=== PATIENT | male | born 1930 | race African-American/Black ===

== ENCOUNTER 2017-03-08 11:47 | Inpatient (IN) | payer OTHER ==
[~2017-03-08] VITALS: Ht 180.3 cm; Wt 57.7 kg
[~2017-03-08 11:47] MED LIST: ALBUD HHN; ALPHAGAN P5 M1 OU; AMLODIPINE BES2.5 M1; AMLODIPINE BESY10 M1 PO; BUPROPION HCL100 M1 PO; CLINDAMYCIN300 M1 PO; CLONIDINE HCL0.2 MG PO; DOK250 MG PO; DUONEB3 ML NEB; FERROUS SULFAT325 M2 PO; GOOD SENSE ASPI81 M3 PO; GUAIFEN/CODEIN120 ML PO; HYDROCHLOROTHIA25 MG PO; IBUPROFEN400 MG PO; LAC PO; LEVAQUIN750 MG PO; LISINOPRIL40 MG PO; LOPERAMIDE2 MG PO; METOPROLOL TART25 M1 PO; NEU300 PO; OMEPRAZOLE DR20 M1 PO; PRE10 PO; PROTONIX20 MG PO; SENNA LAX8.6 MG PO; SIMVASTATIN10 M1 PO; TRAZODONE50 M1; TRAZODONE50 M1 PO; VITAMIN D NATU400 IU PO; XALATAN2.5 ML OU; ZOS3PM IV
[2017-03-08 11:54] VITALS: Ht 180.3 cm; Wt 57.7 kg
[2017-03-08 13:18] LABS: CK-MB 0.6 ng/mL (0-3.6)
[2017-03-08 13:41] LABS: BASOPHIL % 0.4 % (0-2); PLATELET COUNT 415 x10^3mcL (130-400); RED CELL DISTRIBUTION WIDTH 17.1 % (11.5-14.5)
[2017-03-08 14:01] LABS: ALBUMIN 2.5 g/dL (3.4-5.0); ALKALINE PHOSPHATASE 72 U/L (46-116); ALT/SGPT 8 U/L (16-63); AST/SGOT 13 U/L (15-37); BILIRUBIN TOTAL 0.3 mg/dL (0.20-1.00); CALCIUM 9.3 mg/dL (8.5-10.1); CARBON DIOXIDE 37.6 mmol/L (21-32); CHLORIDE SERUM 94 mmol/L (98-107); CREATININE SERUM 1.1 mg/dL (0.7-1.3); GLUCOSE SERUM 143 mg/dL (74-106); POTASSIUM SERUM 3.8 mmol/L (3.5-5.1); SODIUM SERUM 141 mmol/L (136-145); TOTAL PROTEIN, SERUM 6.6 g/dL (6.4-8.2)
[2017-03-08] MEDS ORDERED: GABAPENTIN100 M2 PO (15:17)
[2017-03-08] MEDS ORDERED: GOOD NEIGHBOR P20 M2 PO (15:18)
[2017-03-08] MEDS ORDERED: LATANOPROST2.5 ML OU (15:18)
[2017-03-08] MEDS ORDERED: SENNA8.6 M2 PO (15:18)
[2017-03-08] MEDS ORDERED: COLACE100 MG PO (15:18)
[2017-03-08] MEDS ORDERED: SPIRIVA18 MC1 INH (15:18)
[2017-03-08] MEDS ORDERED: ALPHAGAN P5 M1 OU (15:18)
[2017-03-08] MEDS ORDERED: MASON NATURAL1000 IU PO (15:19)
[2017-03-08] MEDS ORDERED: SYMBICORT1 AE3 INH (15:19)
[2017-03-08 15:52] VITALS: BP 128/60
[2017-03-08 17:27] LABS: MAGNESIUM 1.9 mg/dL (1.8-2.4); PHOSPHOROUS 2.9 mg/dL (2.5-4.9)
[2017-03-08 17:28] LABS: CHOLESTEROL/HDL RATIO 1.7
[2017-03-08 17:34] LABS: T3 TOTAL 0.68 ng/mL
[2017-03-08 17:36] LABS: FREE T4 1.73 ng/dL (0.76-1.46); T4(THYROXINE) 10.6 ug/dL (4.7-13.3)
[2017-03-08 18:21] VITALS: BP 111/77
[2017-03-08 21:03] VITALS: BP 133/64
[2017-03-09 06:21] VITALS: BP 154/80
[2017-03-09 08:55] VITALS: BP 135/69
[2017-03-09 12:35] VITALS: BP 108/60
[2017-03-09 14:49] LABS: BASOPHIL % 0 % (0-2); PLATELET COUNT 372 x10^3mcL (130-400); RED CELL DISTRIBUTION WIDTH 17.4 % (11.5-14.5)
[2017-03-09 15:11] LABS: CALCIUM 9.6 mg/dL (8.5-10.1); CARBON DIOXIDE 37.5 mmol/L (21-32); CHLORIDE SERUM 94 mmol/L (98-107); CREATININE SERUM 1.3 mg/dL (0.7-1.3); GLUCOSE SERUM 162 mg/dL (74-106); POTASSIUM SERUM 3.8 mmol/L (3.5-5.1); SODIUM SERUM 140 mmol/L (136-145)
[2017-03-09 16:10] VITALS: BP 132/60
[2017-03-09 19:42] VITALS: BP 109/54
[2017-03-10 05:52] VITALS: BP 106/54
[2017-03-10 09:22] VITALS: BP 113/48
[2017-03-10 12:03] VITALS: BP 119/52
[2017-03-10 17:22] VITALS: BP 133/55
[2017-03-10 21:19] VITALS: BP 91/58
[2017-03-11 05:53] VITALS: BP 131/57
[2017-03-11 08:30] VITALS: BP 115/46
[2017-03-11 12:30] VITALS: BP 142/57
[2017-03-11 17:05] VITALS: BP 127/56
[2017-03-11 21:06] VITALS: BP 134/58
[2017-03-12 05:18] VITALS: BP 135/62
[2017-03-12 08:34] VITALS: BP 141/62
[2017-03-12 13:27] VITALS: BP 134/56
[2017-03-12 18:29] VITALS: BP 158/67
[2017-03-12 21:44] VITALS: BP 150/60
[2017-03-13 05:57] VITALS: BP 140/65
[2017-03-13 06:39] LABS: CALCIUM 8.8 mg/dL (8.5-10.1); CHLORIDE SERUM 104 mmol/L (98-107); CREATININE SERUM 1.1 mg/dL (0.7-1.3); GLUCOSE SERUM 128 mg/dL (74-106); POTASSIUM SERUM 3.5 mmol/L (3.5-5.1); SODIUM SERUM 142 mmol/L (136-145)
[2017-03-13 07:29] LABS: PLATELET COUNT 234 x10^3mcL (130-400)
[2017-03-13 07:30] LABS: BASOPHIL % 0 % (0-2); RED CELL DISTRIBUTION WIDTH 17.2 % (11.5-14.5)
[2017-03-13 07:36] LABS: rbc morphology (normal/abnorm) ABNORMAL (NORMAL)
[2017-03-13 09:16] VITALS: BP 146/61
[2017-03-13 12:55] VITALS: BP 120/47
[2017-03-13 17:17] VITALS: BP 136/59
[2017-03-13 20:56] VITALS: BP 143/59
[2017-03-14 05:50] VITALS: BP 132/60
[2017-03-14 08:15] VITALS: BP 152/66
[2017-03-14 21:13] VITALS: BP 169/79
[2017-03-15 05:26] VITALS: BP 126/72
[2017-03-15 09:01] VITALS: BP 150/70
[2017-03-15 18:35] VITALS: BP 143/62
[2017-03-15 21:43] VITALS: BP 127/56
[2017-03-16 06:06] VITALS: BP 138/62
[2017-03-16 09:07] VITALS: BP 150/64
[2017-03-16 16:49] VITALS: BP 117/53
[2017-03-16 21:40] VITALS: BP 110/47
[2017-03-17 05:19] VITALS: BP 144/61
[2017-03-17 09:10] VITALS: BP 150/67
[2017-03-17 16:52] VITALS: BP 145/65
[2017-03-17 17:14] VITALS: BP 145/65
[2017-03-17 21:52] VITALS: BP 128/52
[2017-03-18 05:22] VITALS: BP 142/67
[2017-03-18] MEDS ORDERED: AUG500 PO (09:33)
[2017-03-18] MEDS ORDERED: LAC PO (09:33)
[2017-03-18] MEDS ORDERED: SEROQUEL50 M1 PO (09:33)
[2017-03-18 10:21] VITALS: BP 151/70
[2017-03-18 13:56] VITALS: BP 151/70
== END 2017-03-18 15:44 | DRG 177 ==
LOC: ED 11:47 → DU 14:46 → MU 03-13 10:06
PROVIDERS: Emergency Medicine; Family Medicine
DX: J69.0 Pneumonitis due to inhalation of food and vomit (principal); G93.41 Metabolic encephalopathy; E43 Unspecified severe protein-calorie malnutrition; J44.1 Chronic obstructive pulmonary disease with (acute) exacerbation; C34.92 Malignant neoplasm of unspecified part of left bronchus or lung; C34.91 Malignant neoplasm of unspecified part of right bronchus or lung; J98.19 Other pulmonary collapse; F03.90 Unspecified dementia, unspecified severity, without behavioral disturbance, psychotic disturbance, mood disturbance, and anxiety; E11.65 Type 2 diabetes mellitus with hyperglycemia; E11.51 Type 2 diabetes mellitus with diabetic peripheral angiopathy without gangrene; I10 Essential (primary) hypertension; D64.9 Anemia, unspecified; F32.9 Major depressive disorder, single episode, unspecified; Z68.20 Body mass index [BMI] 20.0-20.9, adult
CPT/HCPCS: 82962; 83880; 84439; 86480; 87116; 87206; 90658; J1815; J1956; J2543; J2916; J2920; J2930; J3490; J7030; J7042; J7613; J7620; J7644; Q0092; Q9967